=== PATIENT | female | born 1930 | race Caucasian/White ===

== ENCOUNTER 2018-03-13 15:20 | Emergency (ER) | payer MEDICARE ==
[~2018-03-13] VITALS: Ht 154.9 cm; Wt 58.5 kg
--- NOTE | 2018-03-13 15:30 | NUR ---
BBRA FROM HOME FOR SOB AND HYPOXIA. O2 SATURATION 86% ON ROOM AIR. PATIENT PLACED ON 4 L OXYGEN VIA NC. A/OX 4. BREATHING EVEN AND UNLABORED. NO DISTRESS NOTED. VITALS STABLE. SAFETY AND COMFORT MEASURES IN PLACE. IV ESTABLISHED ON RFA, 22G IN ROUTE. AWAITING MD ORDERS.
--- NOTE | 2018-03-13 15:44 | NUR ---
SECOND IV STARTED ON LFA, 20G. BLOOD DRAWN AND SENT TO LAB.
[2018-03-13 15:52] LABS: BASOPHILS # (AUTO) 0.1 /CMM (0.0-0.2); BASOPHILS % (AUTO) 0.4 % (0.0-2.0); HEMATOCRIT 36 % (33-45); HEMOGLOBIN 12.1 g/dL (11.5-14.8); LYMPHOCYTES # (AUTO) 0.7 /CMM (0.8-4.8); LYMPHOCYTES % (AUTO) 5.3 % (20.0-44.0); MEAN CORPUSCULAR HGB CONC 34 g/dl (31.0-36.0); MEAN CORPUSCULAR VOLUME 93 fL (82-100); MONOCYTES # (AUTO) 0.5 /CMM (0.1-1.30); MONOCYTES % (AUTO) 4.2 % (2.0-12.0); NEUTROPHILS # (AUTO) 11.3 /CMM (1.8-8.9); NEUTROPHILS % (AUTO) 87.1 % (43.0-81.0); PLATELET COUNT (AUTO) 178 /CMM (150-450); RDW COEFFICIENT OF VARIATION 12.8 (11.5-15.0); RED BLOOD CELL COUNT(AUTO) 3.82 MIL/uL (4.0-5.2)
[2018-03-13] MEDS ORDERED: CARV6.252 PO (16:00)
[2018-03-13] MEDS ORDERED: FLUT16SP NS (16:00)
[2018-03-13] MEDS ORDERED: ASPI-1169 PO (16:00)
[2018-03-13] MEDS ORDERED: BLOO-668 IN (16:00)
[2018-03-13] MEDS ORDERED: HUM10VIA SQ (16:00)
[2018-03-13] MEDS ORDERED: FURO-144 PO (16:00)
[2018-03-13] MEDS ORDERED: POLY17PO4 PO (16:00)
[2018-03-13] MEDS ORDERED: SIMV40TA5 PO (16:00)
[2018-03-13 16:11] LABS: CALCIUM, SERUM 9.3 mg/dL (8.5-10.1); CARBON DIOXIDE 33 mmol/L (21-32); CHLORIDE 105 mmol/L (98-107); CREATININE 0.9 mg/dL (0.6-1.3); GLUCOSE 107 mg/dL (74-106); POTASSIUM 4.1 mmol/L (3.5-5.1); SODIUM SERUM 141 mmol/L (136-145); UREA NITROGEN, BLOOD 40 mg/dL (7-18)
[2018-03-13 16:15] LABS: TROPONIN I 0.022 ng/mL (0.00-0.056)
[2018-03-13 16:25] LABS: ALKALINE PHOSPHATASE 60 U/L (46-116); ASPARTATE AMINOTRANSFERASE 18 U/L (15-37); BILIRUBIN,DIRECT 0.1 mg/dL (0.0-0.2); BILIRUBIN,TOTAL 0.5 mg/dL (0.2-1.0); TOTAL PROTEIN, SERUM 6.6 g/dL (6.4-8.2)
[2018-03-13 16:44] LABS: ALANINE AMINOTRANSFERASE 17 U/L (12-78); B-TYPE NATRIURETIC PEPTIDE 697 PG/ML (0-125)
[2018-03-13] MEDS ORDERED: IOHEXOL-350 100 ML VIAL IV ONE (17:52)
--- NOTE | 2018-03-13 18:13 | NUR ---
PATIENT AND SON REFUSING CTA, STATING THEY WOULD LIKE TO GO HOME AND DO NOT WANT TO DO ANY MORE TESTING. DR. CARRILLO AT BEDSIDE EXPLAINING RISKS AND PATIENT STILL WANTS TO LEAVE. MD STATING PATIENT CAN LEAVE AMA. SON, SIGNED AMA AND DISCHARGE PAPERWORK.
--- NOTE | 2018-03-13 19:19 | NUR ---
[facility] RO [id number] TRIP #:[id number]
--- NOTE | 2018-03-13 19:20 | NUR ---
REPORT GIVEN TO RN, ONESIMO FOR LETICIA
--- NOTE | 2018-03-13 20:18 | NUR ---
REPORT GIVEN TO EMT FOR TRANSPORT TO HOME
[2018-03-13 20:19] VITALS: BP 150/77
== END 2018-03-13 20:20 | disposition home or self-care (01) ==
LOC: ER 15:21
DX: R06.02 Shortness of breath (principal); I70.0 Atherosclerosis of aorta; I10 Essential (primary) hypertension; E11.9 Type 2 diabetes mellitus without complications; Z88.2 Allergy status to sulfonamides; Z88.0 Allergy status to penicillin; Z88.1 Allergy status to other antibiotic agents; Z79.82 Long term (current) use of aspirin; Z79.4 Long term (current) use of insulin; Z98.890 Other specified postprocedural states; Z91.040 Latex allergy status; Z88.8 Allergy status to other drugs, medicaments and biological substances; Z88.6 Allergy status to analgesic agent; Z95.818 Presence of other cardiac implants and grafts; Z87.09 Personal history of other diseases of the respiratory system
CPT/HCPCS: 36415; 71045-TC; 80048-TC; 80076-TC; 83880; 84484-TC; 85025-TC; 87081-TC; A4606; Q9967; Z7610